=== PATIENT | female | born 1950 | race Caucasian/White ===

== ENCOUNTER 2018-03-09 14:10 | Emergency (ER) | payer OTHER ==
[~2018-03-09] VITALS: Ht 157.5 cm; Wt 78.9 kg
[~2018-03-09 14:10] MED LIST: PHEN-329 PO; SULF1TAB12 PO; [UNRECOGNIZED DRUG - OTHER]
[2018-03-09 14:14] VITALS: BP 139/67
[2018-03-09 15:21] LABS: BASOPHILS % (AUTO) 0.5 % (0.0-2.0); EOSINOPHILS # (AUTO) 0.1 K/uL (0-0.4); EOSINOPHILS % (AUTO) 0.7 % (0.0-4.0); HEMATOCRIT 38.4 % (36-48); HEMOGLOBIN 12.8 g/dL (12.0-16.0); LYMPHOCYTES # (AUTO) 2.2 K/uL (2.5-16.5); MEAN CORPUSCULAR HEMOGLOBIN 29 pg (27-31); MEAN CORPUSCULAR HGB CONC 33 g/dL (33-37); MEAN CORPUSCULAR VOLUME 87.4 fL (80-94); MONOCYTES # (AUTO) 0.5 K/uL (0.8-1.0); MONOCYTES % (AUTO) 6.3 % (1.7-9.3); NEUTROPHILS # (AUTO) 4.8 K/uL (1.8-7.7); NEUTROPHILS % (AUTO) 63.5 % (42.2-75.2); PLATELET COUNT (AUTO) 278 K/uL (140-450); RED CELL DISTRIBUTION WIDTH 14.1 % (11.6-13.7); WHITE BLOOD COUNT (AUTO) 7.6 K/uL (4.8-10.8)
[2018-03-09] MEDS: NACL 0.9% 1,000 ML IV SCH (15:31)
[2018-03-09] MEDS: GLYCOPYRROLATE 0.2 MG/ML VIAL IV ONE ×2 (15:32→18:33)
[2018-03-09] MEDS: MORPHINE SULFATE 2 MG/ML SYR IVP ONE ×2 (15:32→18:33)
[2018-03-09] MEDS: METOCLOPRAMIDE 10 MG/2 ML INJ VIAL IVP ONE (15:32)
[2018-03-09] MEDS: FAMOTIDINE 20 MG/2 ML VIAL IVP ONE (15:33)
[2018-03-09 15:35] LABS: ALBUMIN 3.7 g/dL (3.4-5.0); ANION GAP 12.1 (8-16); POTASSIUM 4.1 mmol/L (3.5-5.1); TOTAL BILIRUBIN 0.4 mg/dL (0.0-1.0)
[2018-03-09] MEDS: KETOROLAC 30 MG/ML VIAL IM ONE (15:45)
[2018-03-09] MEDS: NACL 0.9% 1,000 ML IV ONE (16:32)
[2018-03-09 16:45] LABS: APPEARANCE,URINE HAZY (CLEAR); BILIRUBIN,URINE NEGATIVE (NEGATIVE); BLOOD, URINE 2+ (NEGATIVE); COLOR,URINE YELLOW (YELLOW); LEUKOCYTE ESTERASE ,URINE 1+ (NEGATIVE); NITRITE, URINE NEGATIVE (NEGATIVE); PH,URINE 5.5 (5.0-9.0); UGLUCOSE NEGATIVE (NEGATIVE)
[2018-03-09 17:00] LABS: RBC,URINE 0-5 (RARE) /HPF (0-5)
[2018-03-09] MEDS: LEVOFLOXACIN 500 MG/D5W PREMIX 100 ML IV ONE (17:46)
[2018-03-09 19:02] VITALS: BP 114/84
== END 2018-03-09 19:02 | disposition home or self-care (01) ==
LOC: MED 14:10
DX: N39.0 Urinary tract infection, site not specified (principal); K80.50 Calculus of bile duct without cholangitis or cholecystitis without obstruction; E03.9 Hypothyroidism, unspecified; Z90.49 Acquired absence of other specified parts of digestive tract; Z88.1 Allergy status to other antibiotic agents; Z79.899 Other long term (current) drug therapy
CPT/HCPCS: 36415; 74176; 80053; 81001; 82150; 83690; 85025; 87086; 96361; 96365; 96375; 96376; 99285; J1956; J2270; J2765; J3490

== ENCOUNTER 2019-07-24 11:57 | Emergency (ER) | payer OTHER ==
[~2019-07-24] VITALS: Ht 157.5 cm; Wt 76.2 kg
[2019-07-24 12:04] VITALS: BP 127/79
--- NOTE | 2019-07-24 12:30 | NUR ---
PT PRESENTS TO ED FRO EVALUATION OF LOWER BACK PAIN AND COUGH X 2 DAYS. PT AAO X4, GCS 15, ABLE TO SPEAK WITH FULL COMPLETE SENTENCES. RESPIRATIONS EVEN AND UNLABORED, BL LUNG CLEAR. C/O NON PRODUCTIVE COUGH. SKIN WARM/PINK/DRY, +PMSC. ABDOMEN SOFT, NON DISTENDED, ACTIVE BOWEL SOUND X4. LOWER BACK PAIN 6/10. VSS, CUBA CUTE DISTRESS AT THIS TIME. MADE AWARE. WILL CONTINUE TO MONITOR
[2019-07-24] MEDS ORDERED: ALBUTEROL SULFATE/IPRATROPIU 3 ML SOL IH ONE (13:05)
[2019-07-24 14:21] LABS: BASOPHILS # (AUTO) 0.1 K/uL (0.00-0.22); BASOPHILS % (AUTO) 1.1 % (0.0-2.0); EOSINOPHILS # (AUTO) 0.3 K/uL (0-0.4); EOSINOPHILS % (AUTO) 4.3 % (0.0-4.0); HEMATOCRIT 38.2 % (36-48); HEMOGLOBIN 12.7 g/dL (12.0-16.0); LYMPHOCYTES # (AUTO) 2.4 K/uL (2.5-16.5); LYMPHOCYTES % (AUTO) 40.3 % (20.5-51.1); MEAN CORPUSCULAR HEMOGLOBIN 30 pg (27-31); MEAN CORPUSCULAR HGB CONC 33 g/dL (33-37); MONOCYTES # (AUTO) 0.6 K/uL (0.8-1.0); MONOCYTES % (AUTO) 9.6 % (1.7-9.3); NEUTROPHILS # (AUTO) 2.7 K/uL (1.8-7.7); NEUTROPHILS % (AUTO) 44.7 % (42.2-75.2); PLATELET COUNT (AUTO) 230 K/uL (140-450); RED CELL DISTRIBUTION WIDTH 14.5 % (11.6-13.7); WHITE BLOOD COUNT (AUTO) 5.9 K/uL (4.8-10.8)
[2019-07-24 14:52] LABS: ANION GAP 14.5 (8-16); CARBON DIOXIDE 26.2 mmol/L (21-32); CREATININE 0.9 mg/dL (0.6-1.3); POTASSIUM 3.7 mmol/L (3.5-5.1); TOTAL BILIRUBIN 0.5 mg/dL (0.0-1.0)
[2019-07-24 14:53] LABS: ALBUMIN 3.4 g/dL (3.4-5.0)
[2019-07-24] MEDS ORDERED: AZITHROMYCIN 250 MG TAB PO ONE (15:20)
[2019-07-24 16:00] VITALS: BP 118/61
--- NOTE | 2019-07-24 16:00 | NUR ---
Patient discharged with v/s stable. Written and verbal after care instructions given and explained.Patient alert, oriented and verbalized understanding of instructions. Ambulatory with steady gait. All questions addressed prior to discharge. ID band removed. Patient advised to follow up with PMD. Rx of azithromycin, promethazine hydrochlorise with codeine phosphate, and albuterol given. Patient educated on indication of medication including possible reaction and side effects. Opportunity to ask questions provided and answered.
== END 2019-07-24 16:00 | disposition home or self-care (01) ==
LOC: MED 11:57
DX: J18.9 Pneumonia, unspecified organism (principal); R04.2 Hemoptysis; E03.9 Hypothyroidism, unspecified; Z88.1 Allergy status to other antibiotic agents; Z79.899 Other long term (current) drug therapy
CPT/HCPCS: 36415; 71045; 80053; 81002; 83605; 85025; 87040; 94640; 99284; J7620; Q0092

== ENCOUNTER 2021-09-10 10:03 | Emergency (ER) | payer OTHER, MEDICAID ==
[~2021-09-10] VITALS: Ht 162.6 cm; Wt 79.4 kg
[~2021-09-10 10:03] MED LIST changes: +PHEN-1877 PO; -PHEN-329 PO; +SULF-954 PO; -SULF1TAB12 PO
[2021-09-10 10:11] VITALS: BP 142/67
--- NOTE | 2021-09-10 10:18 | NUR ---
PT AMBULATED TO BED, STEADY GAIT
--- NOTE | 2021-09-10 10:25 | NUR ---
70 Y/O FEMALE C/O NON-PRODUCTIVE WET COUGH X3 MONTHS. DENIES FEVER/CHILLS. DENIES PAIN. DENIES N/V/D. LUNG SOUNDS ARE CLEAR IN BILATERAL UPPER LOBES AND DIMINISHED AT BILATARERAL BASES WITH AUDIBLE CRACKLES ON INHALATION AND EXHALATION. PMH: HYPOTHYROIDISM ALLERGIES: CEFOXITIN , SULFA, NITRO, DIPHENHYDRAMINE
--- NOTE | 2021-09-10 11:04 | NUR ---
DR. GOODEN AT PT BEDSIDE.
[2021-09-10] MEDS ORDERED: PRED20TA5 PO (11:10)
[2021-09-10] MEDS ORDERED: IBUP-2213 PO (11:10)
[2021-09-10 11:32] VITALS: BP 142/67
--- NOTE | 2021-09-10 11:33 | NUR ---
Patient discharged with v/s stable. Written and verbal after care instructions given FOR COUGH and explained. Patient alert, oriented and verbalized understanding of instructions. Ambulatory with steady gait. All questions addressed prior to discharge. ID band removed. Patient advised to follow up with PMD. Rx of IBUPROFEN AND PREDNISONE given. Patient educated on indication of medication including possible reaction and side effects. Opportunity to ask questions provided and answered.
== END 2021-09-10 11:33 | disposition home or self-care (01) ==
LOC: MED 10:03
DX: R05.9 Cough, unspecified (principal); M54.6 Pain in thoracic spine; E03.9 Hypothyroidism, unspecified; Z90.49 Acquired absence of other specified parts of digestive tract; Z98.890 Other specified postprocedural states; Z88.1 Allergy status to other antibiotic agents; Z88.2 Allergy status to sulfonamides; Z88.8 Allergy status to other drugs, medicaments and biological substances
CPT/HCPCS: 99283

== ENCOUNTER 2023-07-10 14:04 | Emergency (ER) | payer OTHER, MEDICAID ==
[~2023-07-10] VITALS: Ht 162.6 cm; Wt 59.0 kg
[~2023-07-10 14:04] MED LIST changes: +IBUP-2213 PO; +PRED20TA5 PO
[2023-07-10 14:26] VITALS: BP 122/73; PULSE 71; RESP 18; TEMP 98; O2SAT 98
[2023-07-10] MEDS ORDERED: EMLAC TP (15:21)
[2023-07-10] MEDS ORDERED: IBUP-1842 PO (15:21)
== END 2023-07-10 15:32 | disposition home or self-care (01) ==
LOC: MED 14:04
DX: M25.561 Pain in right knee (principal); E03.9 Hypothyroidism, unspecified; Z79.899 Other long term (current) drug therapy; Z88.1 Allergy status to other antibiotic agents; Z88.2 Allergy status to sulfonamides; Z88.8 Allergy status to other drugs, medicaments and biological substances
CPT/HCPCS: 73562; 99283